=== PATIENT | male | born 2000 | race African-American/Black ===

== ENCOUNTER 2022-11-17 13:23 | Emergency (ER) | payer SELFPAY ==
[2022-11-17] MEDS ORDERED: TOPICAL SKIN ADHESIVE 1 EACH AMP TOPICAL STA (13:49)
[2022-11-17] MEDS ORDERED: IBUPROFEN 600 MG TAB PO STA (13:49)
--- NOTE | 2022-11-17 14:10 | ED ---
Wound/Laceration HPI - General Chief Complaint: Wound/Laceration Stated Complaint: facial laceration Time Seen by Provider: 11/17/22 13:37 Source: patient Mode of arrival: ambulatory - History of Present Illness Initial Comments: Patient is a 22-year-old male who presents the emergency department for laceration. Patient ran into another player while playing basketball causing l aceration to edge of right eyebrow. Patient denies fall and loss of consciousness. He is not on blood thinners. He reports minimal pain in the region. He denies generalized headache, nausea, vomiting, visual symptoms. Tetanus is up-to-date. - Related Data Previous Rx's Medication Instructions Recorded Ibuprofen [Motrin] 600 mg PO Q6HR PRN #30 tab 11/17/22 Allergies Allergy/AdvReac Type Severity Reaction Status Date / Time acetaminophen [From Tylenol] Allergy Swelling Verified 11/17/22 13:36 Penicillins Allergy Swelling Verified 11/17/22 13:36 Review of Systems ROS Statement: Those systems with pertinent positive or pertinent negative responses have been documented in the HPI. ROS Other: All systems not noted in ROS Statement are negative. Past Medical History Past Medical History: No Reported History History of Any Multi-Drug Resistant Organisms: None Reported Past Surgical History: No Surgical Hx Reported Past Psychological History: No Psychological Hx Reported Smoking Status: Never smoker Past Alcohol Use History: None Reported Past Drug Use History: None Reported General Exam General appearance: alert, in no apparent distress Head exam: Present: normocephalic. Absent: normal inspection (2 cm laceration to lateral right eyebrow) Eye exam: Present: normal appearance, PERRL, EOMI. Absent: scleral icterus, conjunctival injection, periorbital swelling Respiratory exam: Present: normal lung sounds bilaterally. Absent: respiratory distress, wheezes, rales, rhonchi, stridor Cardiovascular Exam: Present: regular rate, normal rhythm, normal heart sounds. Absent: systolic murmur, diastolic murmur, rubs, gallop, clicks Neurological exam: Present: alert, oriented X3, CN II-XII intact Psychiatric exam: Present: normal affect, normal mood Skin exam: Present: warm, dry, intact, normal color. Absent: rash Course Vital Signs 11/17/22 11/17/22 13:32 14:22 Temperature 98 F 98.0 F Pulse Rate 70 74 Respiratory 19 18 Rate Blood Pressure 117/70 116/68 O2 Sat by Pulse 99 99 Oximetry Procedures - Laceration Laceration #1 Indication: laceration Site: face Size (cm): 2 Description: linear Pre-repair: wound explored, irrigated extensively Patient Tolerated Procedure: well, no complications Additional Comments: exofin Medical Decision Making - Medical Decision Making Was pt. sent in by a medical professional or institution ([facility], [facility], urgent care, hospital, or group home...) When possible be specific @ -No Did you speak to anyone other than the patient for history (EMS, parent, family, police, friend...)? What history was obtained from this source @ -Mother helped provided informational injury Did you review nursing and triage notes (agree or disagree)? Why? @ -I reviewed and agree with nursing and triage notes Were old charts reviewed (outside hosp., previous admission, EMS record, old EKG, old radiological studies, urgent care reports/EKG's, group home records)? Report findings @ -No old charts were reviewed Differential Diagnosis (chest pain, altered mental status, abdominal pain women, abdominal pain men, vaginal bleeding, weakness, fever, dyspnea, syncope, headache, dizziness, GI bleed, back pain, seizure, CVA, palpatations, mental health)? @ -Laceration, abrasion, contusion, concussion, intracranial hemorrhage. This list is not meant to be all-inclusive EKG interpreted by me (3pts min.). @ -As above X-rays interpreted by me (1pt min.). @ -None done CT interpreted by me (1pt min.). @ -None done U/S interpreted by me (1pt. min.). @ -None done What testing was considered but not performed or refused? (CT, X-rays, U/S, labs)? Why? @ -None What meds were considered but not given or refused? Why? @ -None Did you discuss the management of the patient with other professionals (professionals i.e. [facility] Merrill, [facility], lab, RT, psych nurse, oncology social worker, cafeteria team leader, teacher, promotion officer, counter caser)? Give summary @ -No Was smoking cessation discussed for >3mins.? @ -No Was critical care preformed (if so, how long)? @ -No Were there social determinants of health that impacted care today? How? (Homelessness, low income, unemployed, alcoholism, drug addiction, transportation, low edu. Level, literacy, decrease access to med. care, assisted, rehab)? @ -No Was there de-escalation of care discussed even if they declined (Discuss DNR or withdrawal of care, Hospice)? DNR status @ -No What co-morbidities impacted this encounter? (DM, HTN, Smoking, COPD, CAD, Cancer, CVA, ARF, Chemo, Hep., AIDS, mental health diagnosis, sleep apnea, morbid obesity)? @ -None Was patient admitted / discharged? Hospital course, mention meds given and route, prescriptions, significant lab abnormalities, going to OR and other pertinent info. @ -This is a well-appearing male who sustained low-impact head injury. GCS 15. No loss of consciousness to blood thinner use, no hematoma, no vomiting. Patient has a small laceration to right lateral eyebrow he declined suturing the wound was irrigated and well approximated with exofin. Tetanus update not indicated wound care discussed in detail new problem with uncertain prognosis? @ -No Drug Therapy requiring intensive monitoring for toxicity (Heparin, Nitro, Insulin, Cardizem)? @ -No Were any procedures done? @ -yes, laceration repair Diagnosis/symptom? @ -Laceration, minor head injury Aute, orChronic, or Acute on Chronic? @ acute Ucomplicted (without systemic symptoms) or Complicated (systemic symptoms)? uncomplicated Bruise Trimmer effets of treatment? @ -No Exaceraton, Progression, or Severe Exacerbation? @ -No Poses treat to life or bodily function? How? (Chest pain, [place], MT, pneumonia, PE, COPD, DKA, ARF, appy, cholecystitis, CVA, Diverticulitis, Homicidal, Suicidal, threat to staff... and all critical care pts) @ -No Dr. Parra is my attending Disposition Clinical Impression: Laceration, Minor head injury Disposition: HOME SELF-CARE Condition: Good Instructions (If sedation given, give patient instructions): Laceration (DC) Additional Instructions: Leave wound uncovered. Keep wound clean and dry. Wash with a mild soap. Take Tylenol or anti-inflammatories such as Motrin for pain. Follow-up with primary care provider in 1-2 days. Report back to the emergency department if you experience new, concerning, or worsening symptoms. Prescriptions: Ibuprofen [Motrin] 600 mg PO Q6HR PRN #30 tab PRN Reason: Pain Is patient prescribed a controlled substance at d/c from ED?: No Referrals: Nonstaff,Physician [Primary Care Provider] - 1-2 days
[2022-11-17 14:24] VITALS: BP 116/68; PULSE 74; RESP 18; TEMP 98
== END 2022-11-17 14:21 | disposition home or self-care (01) ==
LOC: EC 13:23
DX: S01.81XA Laceration without foreign body of other part of head, initial encounter (principal); Z88.6 Allergy status to analgesic agent; Z88.0 Allergy status to penicillin; W51.XXXA Accidental striking against or bumped into by another person, initial encounter; Y93.67 Activity, basketball
CPT/HCPCS: 12011; 99282